=== PATIENT | male | born 1975 | race Caucasian/White ===

== ENCOUNTER 2022-08-04 17:00 | Observation (INO) | payer BC, SELFPAY ==
[2022-08-04] VITALS (8 sets, daily range): BP systolic 137–196; BP diastolic 82–113; PULSE 89–115; RESP 16–26; TEMP 36.4–36.7; O2SAT 95–99; BMI 30.8; BMI 29.9
--- NOTE | 2022-08-04 16:49 | ECG_ITS ---
APPROVED REPORT Exam: Resting ECG HR:116 bpm ECG Measurements Heart Rate 116 AXES SC 169 P 56 QRSd 87 QRS 1 QT 326 T 64 QTc 395 Conclusion SINUS TACHYCARDIA MINIMAL ST DEPRESSION [0.025+ mV ST DEPRESSION] ABNORMAL RHYTHM ECG UNCONFIRMED REPORT Electronically signed by : Ignacio Harmon MD 08/07/2022 15:29:10
--- NOTE | 2022-08-04 17:07 | XR_ITS ---
PROCEDURE INFORMATION: Exam: XR Chest Exam date and time: 08/04/22 05:24 PM Age: 46 years old Clinical indication: Pain; Chest pressure; Additional info: Chest tightness TECHNIQUE: Imaging protocol: Radiologic exam of the chest. Views: 1 view. COMPARISON: No relevant prior studies available. FINDINGS: Lungs: Unremarkable. No consolidation. Pleural spaces: Unremarkable. No pleural effusion. No pneumothorax. Heart/Mediastinum: Unremarkable. No cardiomegaly. Bones/joints: Unremarkable. IMPRESSION: No acute findings.
[2022-08-04 17:21] LABS: Basophils # 0.2 K/mm3 (0-0.2); Basophils % 1.4 % (0.1-2.0); Eosinophils % 0.4 % (0.1-12.0); Hematocrit 47.6 % (42.0-52.0); Hemoglobin 16.1 g/dL (14.1-18.0); Lymphocytes # 4.3 K/mm3 (0.7-4.5); Lymphocytes % 40.3 % (10-50); Mean Corpuscular HGB Conc 33.9 g/dL (31.8-35.4); Mean Corpuscular Hemoglobin 28.8 pg (27.0-31.2); Mean Corpuscular Volume 84.9 fl (80-94); Mean Platelet Volume 8.1 fl (7.4-10.4); Monocytes # 0.4 K/mm3 (0.1-1.0); Monocytes % 3.6 % (1.7-9.3); Neutrophils # 5.7 K/mm3 (1.8-7.8); Neutrophils % 54.3 % (37.0-80.0); Platelet Count 470 K/mm3 (142-424); Red Cell Distribution Width 13.2 % (11.5-17.5); White Blood Count 10.5 K/mm3 (4.8-10.8)
[2022-08-04 17:27] LABS: Blood Urea Nitrogen 9 mg/dl (9-20); Calcium 9.1 mg/dl (8.4-10.2); Carbon Dioxide 24 mmol/L (22.0-30.0); Chloride 101 mmol/L (98-107); Creatinine Clearance Estimated 255 mL/min (50-200); Estimated Glomerular Filt Rate 179 ml/min (>60); GFR (African American) 217 ML/MIN (>60); Glucose 353 mg/dl (74-100); Potassium 3.7 mmoL/L (3.5-5.1)
[2022-08-04 17:34] LABS: Anion Gap 14.7 mEq/L (5-15); Sodium 136 mmol/L (136-145)
--- NOTE | 2022-08-04 17:41 | PC.NURSE ---
report given to tahirarn
[2022-08-04 17:42] LABS: Troponin I < 0.01 ng/ml (0.00-0.034)
--- NOTE | 2022-08-04 17:48 | HMH.EDGENADL ---
Discharge Plan Disposition Patient Disposition: Admitted as Observation Condition: Fair Prescriptions Prescriptions: No Action metformin 500 mg Tablet 500 mg PO DAILY Referrals Follow up/Referrals: John Coffey [Primary Care Provider] - See instructions Clinical Impressions Clinical Impression: New-onset angina, Hypertensive urgency Discharge ED Provider: Leonard Tubbs General Adult HPI General Chief complaint: Chest Pain Stated complaint: CHEST PAIN Time Seen by Provider: 08/04/22 17:50 Mode of Arrival: Ambulatory Source of Information: Patient Limitations: No Limitations Description of Symptoms (Recalled from ER Triage Doc. by RN): Pt reports got all over his body suddenly and began having chest tightness. Pt reports he got so hot he felt like he couldn't breathe and was going to pass out. Pt reports chest tightness was in the center of his chest, pt reports tightness has improved. Pt denies SOA. Pt diamond eyes are red all around the sclera, pt reports he can feel that diamond eyes are hot. NO drainage noted, pt denies blurry vision or double vision or change in vision. Pt reports redness to diamond eyes began at the same time as him feeling hot all over his body. History of Present Illness HPI narrative: Patient states that about 4:30 PM he was talking to his son about going into the garage to work on a mower when he suddenly began having chest tightness and neck tightness, he felt very hot and short of breath. He did not break out in a sweat. He got up to go to the bathroom to get a wet washcloth and when he did so he felt like he was going to pass out. He did not lose consciousness. He did not have nausea or vomiting. His symptoms lasted about 15 minutes and he says he no longer has any chest discomfort. He does not have any known heart disease. He does have diabetes and hyperlipidemia. He does not have hypertension and says when he goes to the doctor his blood pressure is always normal. He has never been a smoker. His grandfather at 35 of a presumed heart attack. His father's had bypass surgery. No recent surgery, travel, hospitalizations. No prior cardiac work-up. Related Data Home Medications Medication Instructions Recorded Confirmed metformin 500 mg tablet 500 mg PO DAILY Diabetes 08/04/22 08/04/22 Allergies Allergy/AdvReac Type Severity Reaction Status Date / Time No Known Allergies Allergy Verified 08/04/22 17:07 [facility] Medical History (Updated 08/04/22 @ 18:21 by Leonard Tubbs MD) Diabetes Hyperlipidemia Social History Smoking Status: Never smoker ROS Obtained: Yes Systems reviewed as appropriate & no additional complaints except as documented Constitutional Constitutional: Denies fever(s) Cardiovascular Cardiovascular: Reports chest pain, Denies diaphoresis (felt hot all over) and Reports radiating jaw, neck or arm pain Respiratory Respiratory: Reports shortness of breath Gastrointestinal Gastrointestingal: Denies abdominal pain, diarrhea or vomiting Physical Exam General General appearance: alert and anxious Head Head exam: atraumatic and normocephalic Eye Eye exam: Present EOMI and conjunctival injection ENT ENT exam: Present normal exam and mucous membranes moist Neck Neck exam: Present normal inspection and trachea midline Chest Chest inspection: Present normal inspection and symmetric chest wall rise Respiratory Respiratory exam: Present normal lung sounds bilaterally; Absent respiratory distress Cardiovascular Cardiovascular exam: Present tachycardia and normal heart sounds Abdominal Exam Abdominal exam: Present soft; Absent distention or tenderness Extremities Exam Extremities exam: Present normal inspection; Absent edema or calf tenderness Neurological Exam Neurological exam: Present alert and oriented X3 Psychiatric Psychiatric exam: Present anxious Skin Skin exam: Present warm and dry; Absent diaphoresis Medical Decision Making
--- NOTE | 2022-08-04 18:00 | PC.NURSE ---
DR. VIRGEN SPEAKING WITH DR. RAMEY REGARDING PATIENT.
--- NOTE | 2022-08-04 18:29 | PC.NURSE ---
DR. CEVALLOS SPEAKING WITH DR. QUEEN REGARDING ADMISSION.
[2022-08-04 18:57] LABS: Coronavirus 19, PCR Not Detected (NotDetected); Influenza A, PCR Not Detected (NotDetected); Influenza B, PCR Not Detected (NotDetected)
--- NOTE | 2022-08-04 20:52 | PC.NURSE ---
Spoke with patient regarding their admission. Patient was uncertain as to rather he wanted to stay as an inpatient with a cardiology consult. Per his , she spoke with her sisters, who are both registered nurses, and was advised by her sisters that [facility] is not a cardiac hospital so her should not stay here for cardiology consults and should instead follow up with his pcp and a scleroscope tester at a larger hospital where they can do interventions. I spoke with the patient and his both and informed them that we are accredited and our scleroscope tester is able to diagnose heart blockages and do interventions here, that if he were to stay as an inpatient he would see cardiology in the morning and they would be able to answer any questions regarding their services that they can and also cannot provide at this facility.
[2022-08-04 21:34] LABS: Troponin I 0.02 ng/ml (0.00-0.034)
--- NOTE | 2022-08-04 21:36 | PC.NURSE ---
PT ARRIVED TO FLOOR VIA WHEELCHAIR AT THIS TIME
[2022-08-04 22:31] LABS: POC Glucose,Bedside 350 (70-110)
[2022-08-05] VITALS: PULSE 80
[2022-08-05 00:01] LABS: Troponin I < 0.01 ng/ml (0.00-0.034)
[2022-08-05 00:30] LABS: POC Glucose,Bedside 308 (70-110)
[2022-08-05 01:29] VITALS: PULSE 90
[2022-08-05 03:51] VITALS: BP 107/63; PULSE 77; RESP 18; TEMP 36.8; O2SAT 97
--- NOTE | 2022-08-05 04:26 | PC.NURSE ---
Pt is alert and oriented x4. Pt has not complained of any pain this shift, pt has been resting since arriving to the floor. is at bedside. Lung sounds clear, abdomen soft and nontender, bowel sounds active. Pt is ACHS FS, glucose on arrival to floor was 350, pt treated per protocol on jan. Call light in reach and working.
[2022-08-05 04:41] VITALS: PULSE 70
[2022-08-05 06:13] LABS: POC Glucose,Bedside 265 (70-110)
--- NOTE | 2022-08-05 07:37 | EXP.PHA.VTE ---
[facility] VTE Monitoring Patient Demographics Admission date: 08/04/22 Report Date: 08/05/22 Time: 07:39 Patient Allergies No Known Allergies Allergy (Verified 08/04/22 21:51) Height: 1.78 m Weight: 95.073 kg Current Active Problems (Updated 08/04/22 @ 18:21 by Leonard Tubbs MD) New-onset angina (Acute) Hypertensive urgency (Acute) VTE Risk Labs: VTE Related Lab Results Hgb 16.1 g/dL (14.1-18.0) 08/04/22 17:01 Hct 47.6 % (42.0-52.0) 08/04/22 17:01 Plt Count 470 K/mm3 (142-424) H 08/04/22 17:01 BUN 9 mg/dl (9-20) 08/04/22 17:01 Creatinine 0.50 mg/dl (0.66-1.25) L 08/04/22 17:01 Estimated Creat Clear 255 mL/min (50-200) 08/04/22 17:01 VTE Score: 2 VTE Risk Level: Very Low Risk Prophylaxis VTE Prophylaxis Ordered?: Yes Types of VTE Prophylaxis: TEDS Knee High Location of Applied Device: Bilateral Lower Extremeties
--- NOTE | 2022-08-05 07:41 | HMH.PHAINT1 ---
Pharmacy Intervention Comments: MEDICATION RECONCILIATION COMPLETED ON PATIENT USING EXTERNAL FILL HISTORY FROM PHARMACY. -MANN PANCHAL, SAVANAHD
--- NOTE | 2022-08-05 07:53 | CA_ITS ---
APPROVED REPORT EXAM: Comprehensive 2D, Doppler, and color-flow Echocardiogram [employer]: Giselle Ponce RT(R) Ht: 5 ft 10 in Wt: 209lbs BSA: 2.13 BP: 166/110 mmHg Indications: DM,CP,HTN 2D Dimensions LVOT 2.04 cm (M/F) 1.5-2.5 LVEF (Blanco's) 57.50 % M: 52 - 72 LV Volume 119.90 mL M: 62 - 150 LV Volume Index 56.55 mL/m2 M: 34 - 74 LA Volume 43.20 mL LA Volume Index 20.37 mL/m2 (M/F) 16-34 M-Mode Dimensions RVDd 3.15 cm (0.9-2.6) LA Diam 4.12 cm (1.9-4.0) LVDd 5.06 cm (3.5-5.7) Ao Diam 3.16 cm (2.0-3.7) LVDs 3.76 cm (3.5-5.7) IVSd 0.84 cm (0.6-1.1) PWd 1.03 cm (0.6-1.1) EF (Teich) 50.30% FS 25.70% EDV (Teich) 121.60 mL ESV (Teich) 60.40 mL LV Diastology E Decel Time 213.00 (160-240 msec) E/A Ratio 0.83 MED E' 6.50 (< 7 cm/sec) E'/MED E' Ratio 10.49 (>14) LAT E' 7.30 (<10 cm/sec) E/LAT E' Ratio 9.34 (>14) Mitral Valve MV A Velocity 82.00 (40-130 cm/s) E/A Ratio 0.83 MV Decel. Time 213.00 (160-240 ms) Left Ventricle Left atrium is mildly enlarged, left ventricle is normal size mild concentric left ventricular hypertrophy, estimated ejection fraction 55% with no regional wall motion abnormality, grade 1 diastolic dysfunction seen without tissue Doppler evidence of raise left atrial pressure. Right Ventricle Right atrium and right ventricle are mildly enlarged with normal contractility. Aortic Valve Aortic valve is minimally thickened and fibrosed there is no aortic stenosis or aortic insufficiency. Mitral Valve Mitral valve is grossly normal, there is trace mitral regurgitation. Tricuspid Valve Tricuspid valve grossly normal, there is trace tricuspid regurgitation, tricuspid regurgitation jet velocity is inadequate for calculation of the right ventricular systolic pressure. Pulmonic Valve Pulmonic valve is poorly visualized. Great Vessels Aortic root is normal size. Inferior vena cava is normal size with normal inspiratory collapse. Pericardium No significant pericardial effusion noted. Conclusion 1. Mild biatrial enlargement, normal left ventricular size, mild concentric left ventricular hypertrophy, estimated ejection fraction 55% with no regional wall motion abnormality, grade 1 diastolic dysfunction seen without tissue Doppler evidence of raise left atrial pressure. 2. Mildly enlarged right ventricle with normal contractility. 3. Trace mitral and tricuspid regurgitation. 4. No significant pericardial effusion noted. 5. Inferior vena cava is normal size with normal inspiratory collapse. Electronically signed by : John Tejada MD 08/05/2022 14:32:00
[2022-08-05 08:00] VITALS: BP 146/74; PULSE 77; PULSE 90; RESP 16; TEMP 36.4; O2SAT 96
--- NOTE | 2022-08-05 08:20 | EXP.CARD.CON ---
History of Present Illness History of Present Illness Consult date: 08/05/22 Requesting physician: Renny Zafar Consult reason: chest pain Chief complaint: Chest pain Additional Medical History:: 1. Diabetes mellitus, treated for about 2 years 2. Family history of coronary artery disease/[place]/bypass in his father in his mid 60s (smoker) 3. Hypertension 4. Hyperlipidemia History of present illness: 46-year-old white male presented for evaluation of sudden onset of warm/hot feeling with associated chest discomfort described as a tightness across the chest and into the neck with some tingling sensation in the arms and legs. Patient came to the emergency department for evaluation. Initial troponin is normal. EKG shows sinus tachycardia at 116 bpm. Symptoms have resolved at this morning. Non-smoker No previous treatment for hypertension PFSH PFS Medical History (Updated 08/05/22 @ 08:25 by ANITA Carbajal) Diabetes Hyperlipidemia Family History (Updated 08/04/22 @ 22:07 by Nadine Galeas, CHANG) Family history of cancer Family history of hypertension Family history of hyperlipidemia Social History (Updated 08/04/22 @ 22:09 by Nadine Galeas RN) Smoking Status: Never smoker alcohol intake: never current occupational status: employed Travel in the last 8 weeks: None Review of Systems *Cardiovascular Cardiovascular: Reports chest pain and Denies dyspnea *Respiratory Respiratory: Denies dyspnea Exam Data for Last 24 hours Vital signs and Labs for Last 24 Hours: Temp Pulse Resp BP Pulse Ox 98.2 F 70 18 107/63 L 97 08/05/22 03:51 08/05/22 04:41 08/05/22 03:51 08/05/22 03:51 08/05/22 03:51 Laboratory Results - last 24 hr 08/04/22 17:01: WBC 10.5, RBC 5.60, Hgb 16.1, Hct 47.6, MCV 84.9, MCH 28.8, MCHC 33.9, RDW 13.2, Plt Count 470 H, MPV 8.1, Neut % (Auto) 54.3, Lymph % (Auto) 40.3, [place] % (Auto) 3.6, Eos % (Auto) 0.4, Baso % (Auto) 1.4, Neut # (Auto) 5.7, Lymph # (Auto) 4.3, [place] # (Auto) 0.4, Eos # (Auto) 0.0, Baso # (Auto) 0.2 08/04/22 17:01: Sodium 136, Potassium 3.7, Chloride 101, Carbon Dioxide 24, Anion Gap 14.7, BUN 9, Creatinine 0.50 L, Estimated Creat Clear 255, Estimated GFR 179, Est GFR ( Amer) 217, Glucose 353 H, Calcium 9.1, Troponin I < 0.01 08/04/22 18:43: SARS-CoV-2 (PCR) Not detected, Influenza A Untype (PCR) Not detected, Influenza Type B (PCR) Not detected 08/04/22 20:31: Troponin I 0.02 08/04/22 22:07: POC Glucose 350 H* 08/04/22 23:25: Troponin I < 0.01 08/05/22 00:22: POC Glucose 308 H* 08/05/22 06:05: POC Glucose 265 H I & O for Last 24 hours: Intake & Output 08/02/22 08/03/22 08/04/22 08/05/22 11:59 11:59 11:59 11:59 Output Total 0 / 0 Balance 0 / 0 Weight 209 lb 9.6 oz *Routine Neck Exam Neck: Absent JVD or carotid bruit *Routine Respiratory Exam Respiratory: Present CTA bilaterally *Routine Cardiovascular Exam Cardiovascular: Present RRR, Normal S1 and Normal S2; Absent murmur, gallop or rubs *Routine Extremities Exam Extremities: Absent edema *Routine Neurological Exam Neurological: Present alert, oriented X3 and CN II-XII intact Meds Home Medications and Allergies Home Medications Medication Instructions Recorded Confirmed Type atorvastatin 10 mg tablet 10 mg PO HS Cholesterol 08/04/22 08/04/22 History metformin 500 mg tablet 1,000 mg PO BID Diabetes 08/04/22 08/05/22 History New Prescriptions to Start Prescriptions: Allergies Allergy/AdvReac Type Severity Reaction Status Date / Time No Known Allergies Allergy Verified 08/04/22 21:51 Assessment and Plan *Assessment and plan (1) New-onset angina: Status: Acute Category: Medical Code(s): I20.9 - Angina pectoris, unspecified (2) Hypertensive urgency: Status: Acute Category: Medical Code(s): I16.0 - Hypertensive urgency (3) Hyperlipidemia: Status: Acute Category: Medical Code(s): E78.5 - Hyper
[2022-08-05 09:31] LABS: Chol/HDL Ratio 5.4 (1-3.5); Cholesterol 243 mg/dl (140-200); HDL Cholesterol 45 mg/dl (40-60); Triglycerides 203 mg/dl (30-150); VLDL Cholesterol 41 mg/dL (0-40)
[2022-08-05 09:49] LABS: Hemoglobin A1C 11.6 % (4.0-6.0)
[2022-08-05 10:33] VITALS: BMI 29.9
[2022-08-05 11:41] LABS: POC Glucose,Bedside 253 (70-110)
[2022-08-05 12:00] VITALS: BP 121/74; PULSE 76; RESP 18; TEMP 36.6; O2SAT 97
[2022-08-05 14:11] LABS: Direct LDL Cholesterol 145.33 mg/dL (100-129)
--- NOTE | 2022-08-05 14:25 | PC.NURSE ---
rounded on patient. patient is eager for discharge. awaiting on echo results. called william crowe who stated he had gotten the results back and from their standpoint he could go home. he stated he had told primary this as well, along with medication recommendations. this was then relayed to patient. no further questions or concerns. no needs voiced. went over new medications with patient. encouraged him to ring out as needed
--- NOTE | 2022-08-05 14:52 | EXP.HPDC ---
General Admission date:: 08/04/22 Discharge date: 08/05/22 *Admission Date: 08/04/22 *Chief complaint: chest pressure *History of present illness: 46-year-old white male presented for evaluation of sudden onset of warm/hot feeling with associated chest discomfort described as a tightness across the chest and into the neck with some tingling sensation in the arms and legs.? Patient came to the emergency department for evaluation.? Initial troponin is normal.? EKG shows sinus tachycardia at 116 bpm. Symptoms have resolved at this morning. Non-smoker No previous treatment for hypertension (above as per [facility]) [facility] Medical History Diabetes Hyperlipidemia Family History Family history of cancer Coronary artery disease Family history of hypertension Family history of hyperlipidemia Social History Smoking Status: Never smoker alcohol intake: never current occupational status: employed Travel in the last 8 weeks: None Review of Systems Constitutional Constitutional: Denies fatigue, Denies fever(s), Denies headache(s) and Denies weakness Eyes Eyes: Denies blurry vision and Denies diplopia ENT Ears, Nose, Mouth, and Throat: Denies headache(s), Denies nasal congestion, Denies sore throat and Denies vertigo *Cardiovascular Cardiovascular: Reports chest pain, Reports dyspnea and Reports radiating jaw, neck or arm pain *Respiratory Respiratory: Denies chest congestion, Denies cough and Reports dyspnea *Gastrointestinal Gastrointestinal: Denies abdominal pain, Denies loose stools, Denies nausea and Denies vomiting *Genitourinary Genitourinary: Denies difficulty urinating and Denies dysuria *Musculoskeletal Musculoskeletal: Denies arthralgias *Neurologic Neurologic: Denies headache(s), Denies vertigo and Denies weakness Endocrine Endocrine: Denies fatigue Exam Data for Last 24 hours Vital signs and Labs for Last 24 Hours: Temp Pulse Resp BP Pulse Ox 97.8 F 76 18 121/74 97 08/05/22 12:00 08/05/22 12:00 08/05/22 12:00 08/05/22 12:00 08/05/22 12:00 Laboratory Results - last 24 hr 08/04/22 17:01: WBC 10.5, RBC 5.60, Hgb 16.1, Hct 47.6, MCV 84.9, MCH 28.8, MCHC 33.9, RDW 13.2, Plt Count 470 H, MPV 8.1, Neut % (Auto) 54.3, Lymph % (Auto) 40.3, [place] % (Auto) 3.6, Eos % (Auto) 0.4, Baso % (Auto) 1.4, Neut # (Auto) 5.7, Lymph # (Auto) 4.3, [place] # (Auto) 0.4, Eos # (Auto) 0.0, Baso # (Auto) 0.2 08/04/22 17:01: Sodium 136, Potassium 3.7, Chloride 101, Carbon Dioxide 24, Anion Gap 14.7, BUN 9, Creatinine 0.50 L, Estimated Creat Clear 255, Estimated GFR 179, Est GFR ( Amer) 217, Glucose 353 H, Calcium 9.1, Troponin I < 0.01 08/04/22 17:01: Hemoglobin A1c 11.6 H 08/04/22 18:43: SARS-CoV-2 (PCR) Not detected, Influenza A Untype (PCR) Not detected, Influenza Type B (PCR) Not detected 08/04/22 20:31: Troponin I 0.02 08/04/22 22:07: POC Glucose 350 H* 08/04/22 23:25: Troponin I < 0.01 08/04/22 23:25: Triglycerides 203 H, Cholesterol 243 H, LDL Cholesterol Direct 145.33 H, VLDL Cholesterol 41 H, HDL Cholesterol 45, Cholesterol/HDL Ratio 5.4 H 08/05/22 00:22: POC Glucose 308 H* 08/05/22 06:05: POC Glucose 265 H 08/05/22 11:32: POC Glucose 253 H I & O for Last 24 hours: Intake & Output 08/03/22 08/04/22 08/05/22 08/06/22 11:59 11:59 11:59 11:59 Output Total 0 / 0 Balance 0 / 0 Weight 209 lb 7.026 oz Constitutional Constitutional: no acute distress *Routine HEENT Exam Head: Present normocephalic and atraumatic Eye: Present EOMI and PERRL ENT: Present mucous membranes moist *Routine Neck Exam Neck: Present supple and full ROM *Routine Respiratory Exam Respiratory: Present CTA bilaterally *Routine Cardiovascular Exam Cardiovascular: Present RRR *Routine Abdominal Exam Abdominal: Present soft and normoactive bowel sounds; Abse
--- NOTE | 2022-08-08 13:00 | CARE MANAGER ---
Spoke with patient for post-discharge phone interview. Patient states that he is doing well and has no issues at this time.
== END 2022-08-05 15:22 | disposition home or self-care (01) ==
LOC: ER 18:21 → 2ND 18:37
PROVIDERS: Physician Assistant; Admitting Provider Family Medicine; Emergency Provider Emergency Medicine; PCP Family Medicine; Visit Provider Family Medicine
DX: I20.9 Angina pectoris, unspecified (principal); I16.0 Hypertensive urgency; E78.5 Hyperlipidemia, unspecified; E11.9 Type 2 diabetes mellitus without complications; Z79.84 Long term (current) use of oral hypoglycemic drugs; Z82.49 Family history of ischemic heart disease and other diseases of the circulatory system; R07.9 Chest pain, unspecified
CPT/HCPCS: 36415; 71045; 80048; 80061; 82962; 83036; 84484; 85025; 93005; 93306; 93308; 99285; C9803; G0378; U0003; U0005

== ENCOUNTER → 2022-08-15 06:47 | Outpatient (CLI) | payer OTHER, SELFPAY ==
--- NOTE | 2022-08-15 06:48 | CA_ITS ---
APPROVED REPORT Exam: Exercise Treadmill Technologist: Maria Victoria Jovel, Ht: 5 ft 10 in Wt: 213 lbs BSA: 2.14 m2 HR: 74 bpm BP: 143/91 mmHg Medical History Medical History: Hyperlipidemia, HTN, Diabetic Medications: Aspirin,,,,, Metformin,,,,, Atorvastatin,,,,, Carvedilol,,,,, Allergies: No known drug allergies Cardiac Risk Factors: HTN, Hyperlipidemia, Diabetes , FHX of CAD Stress Test Details Test: Dharmesh HR Resting HR: 88 bpm Max Heart Rate (APMHR): 174.777385 bpm Max HR Achieved: 162 bpm Target HR (85% APMHR): 147.855147 bpm % of APMHR: 93.10 Recovery HR: 133 bpm BP Resting BP: 147/94 mmHg Max BP: 220/110 mmHg Recovery BP: 220.0/110.0 mmHg ECG Clinical Exercise duration: 09:56 min Highest Stage Achieved: Exercise capacity: 12.8 METs Stress ECG Conclusion PT HAD SOA/FATIGUE, <1.[address] CHANGE Test Summary RECOVERY 03:00 0.0 0.0 108 . 180/ 91 . . REST . . . . . . . Standing REST 20:19 0.0 0.0 88 . 147/ 94 . . Stage 1 01:00 10.0 1.7 101 . . . . Stage 1 02:00 10.0 1.7 106 . . . . Stage 1 03:00 10.0 1.7 109 . 190/108 . . Stage 2 01:00 12.0 2.5 118 . . . . Stage 2 02:00 12.0 2.5 120 . . . . Stage 2 03:00 12.0 2.5 120 . 198/120 . . Stage 3 01:00 14.0 3.4 133 . . . . Stage 3 02:00 14.0 3.4 136 . . . . Stage 3 03:00 14.0 3.4 146 . 198/118 . . Stage 4 00:56 16.0 4.2 161 . . . Stop exercise at 09:56 RECOVERY 01:00 0.0 0.0 133 . . . . RECOVERY 02:00 0.0 0.0 114 . 220/110 . . RECOVERY 03:00 0.0 0.0 108 . 180/ 91 . . RECOVERY 03:43 0.0 0.0 101 . 164/ 86 . . Electronically signed by : John Tejada MD 08/15/2022 16:21:45
--- NOTE | 2022-08-15 06:48 | NM_ITS ---
APPROVED REPORT Exam: Nuclear Stress Test Indication: Chest pain, SOB, HTN, DM, High cholesterol, Family history Patient Location: Outpatient Stress Tech: Maria Victoria Malone HI Tech:Trini Landa, ARRT, RT (R)(N) Ht: 5 ft 10 in Wt: 210 lbs HR: 88 bpm BP: 147/94 mmHg BSA: 2.13 m2 TID: 0.91 BMI: 30.1 History: Chest pain, SOB, HTN, DM, High cholesterol, Family history Procedure: Patient exercised on Dharmesh protocol 9:56 minutes and sec, resting heart rate 88 bpm, resting blood pressure 147/94 mmHg, with exercise maximum heart rate achived was 162 bpm which is 93 % of the maximum predicted heart rate and blood pressure was 220/110 mmHg. Test was stopped due to SOB. Patient denied any complaint of chest pain. Patient has Good exercise capacity, achieved 12.8 METs of workload on treadmill, the blood pressure response to exercise was Hypertensive. Electrocardiogram Resting electrocardiogram showed sinus rhythm, with exercise there is less than 1.[address] segment depression noted from the baseline EKG. The EKG portion of the exercise Myoview is negative for ischemia. Cardiac Stress and Resting SPECT Images: Cardiac Stress and Resting SPECT images were obtained using technetium 99m Myoview 28.8 mCi stress and 10.43 mCi at rest. Gated SPECT analysis of segmental wall motion and calculation of the ejection fraction also done. Prone images were also obtained. Cardiac stress and rest SPECT images show uniform myocardial activity without segmental perfusion abnormality, computer derived ejection fraction is 58% with no regional wall motion abnormality, right ventricle is normal size and contractility. Conclusion: 1. The EKG portion of the exercise Myoview is negative for ischemia, patient has good exercise capacity achieved 12.8 METs of workload on treadmill, the blood pressure response to exercise was hypertensive, there was no exercise-induced chest discomfort. 2. No scintigraphic evidence of reversible ischemia seen, computer derived ejection fraction 58% with no regional wall motion abnormality, right ventricle is normal size and contractility. 3. Normal exercise Myoview study. Electronically signed by : John Tejada MD 08/15/2022 16:37:27
--- NOTE | 2022-08-15 09:31 | HMH.ITSHM ---
Current Home Medications as stated by this patient Leonard George or home office representative. []METFORMIN LOSARTAN CARVEDILOL ATORVASTATIN ASA
== END ==
PROVIDERS: PCP Family Medicine; Visit Provider Physician Assistant
DX: R07.9 Chest pain, unspecified (principal)
CPT/HCPCS: 78452; 93017; A9502

== ENCOUNTER 2023-04-14 16:22 | Emergency (ER) | payer OTHER, SELFPAY ==
[2023-04-14 16:24] VITALS: BP 135/68; PULSE 93; RESP 16; TEMP 36.5; O2SAT 90; BMI 32.5
[2023-04-14 16:28] VITALS: BP 135/68; PULSE 90; RESP 16; O2SAT 96
--- NOTE | 2023-04-14 16:30 | ECG_ITS ---
APPROVED REPORT Exam: Resting ECG HR:90 bpm ECG Measurements Heart Rate 90 AXES ND 132 P 32 QRSd 101 QRS -3 QT 366 T 33 QTc 414 Conclusion SINUS RHYTHM NORMAL ECG UNCONFIRMED REPORT Electronically signed by : Ignacio Harmon MD 04/15/2023 07:44:31
[2023-04-14 16:31] VITALS: BP 125/75; PULSE 90; RESP 16; O2SAT 96
--- NOTE | 2023-04-14 16:31 | HMH.EDGENADL ---
Discharge Plan Disposition Patient Disposition: Home, Self-Care Prescriptions Prescriptions: No Action carvedilol [Coreg] 6.25 mg tablet 6.25 mg PO BID Rx Instructions: must administer with a meal/food losartan 50 mg tablet 50 mg PO DAILY Qty: 90 3RF metformin 500 mg Tablet 1,000 mg PO BID atorvastatin 10 mg Tablet 10 mg PO HS aspirin 81 mg capsule 81 mg PO DAILY Qty: 30 0RF Referrals Follow up/Referrals: John Coffey [Primary Care Provider] - See instructions Activity Restrictions/Add. Instructions Additional Instructions/Restrictions: Your evaluation today for near syncope and hypoxemia was unremarkable. Your hypoxemia spontaneously resolved. Your symptoms are most likely secondary to neurocardiogenic syncope or vasovagal syncope. Please follow-up with primary care doctor to wear a Holter monitor. Incidentally you were also found to have a 3 mm pulmonary nodule you are very low risk and you may choose in conjunction with your primary care doctor to not follow this up or to have a CT scan and follow-up in 12 months. Please return to the emergency department with any worsening symptoms or other concerns. Clinical Impressions Clinical Impression: Near syncope, Incidental pulmonary nodule, Hypoxia Discharge ED Provider: Christi Leung General Adult HPI General Chief complaint: Dizziness Stated complaint: Dizzy,blurred vision Time Seen by Provider: 04/14/23 16:32 History of Present Illness HPI narrative: Patient is a 47-year-old male presenting with near syncope. States that he was in his normal state of health without any preceding symptoms and was at a greenhouse today for short period of time and started to feel lightheaded getting tunnel vision feeling like he was going to pass out went and sat in his truck but air conditioning on himself and started to feel little bit better. His friend who is with him stated that he looked like he was going to pass out but we do not believe that he lost full consciousness. Patient denies any shortness of breath any drug or chemical exposures, any chest pain or shortness of breath currently denies any current symptoms. Has not had any nausea or vomiting. Related Data Home Medications Medication Instructions Recorded Confirmed atorvastatin 10 mg tablet 10 mg PO HS Cholesterol 08/04/22 08/22/22 metformin 500 mg tablet 1,000 mg PO BID Diabetes 08/04/22 08/22/22 carvedilol 6.25 mg tablet (Coreg) 6.25 mg PO BID 08/08/22 08/22/22 Previous Rx's Medication Instructions Recorded aspirin 81 mg capsule 81 mg PO DAILY #30 caps 08/05/22 losartan 50 mg tablet 50 mg PO DAILY #90 tabs 08/08/22 Allergies Allergy/AdvReac Type Severity Reaction Status Date / Time No Known Allergies Allergy Verified 08/22/22 14:01 [facility] Disclaimer: The information contained in this section may have been updated after the patient was seen, as this information can be updated by other users. Medical History Diabetes HTN (hypertension) Hyperlipidemia Family History Other Coronary artery disease Family history of cancer Family history of hyperlipidemia Family history of hypertension Social History Smoking Status: Never smoker alcohol intake: never current occupational status: employed Travel in the last 8 weeks: None ROS Obtained: Yes All systems reviewed & no additional complaints except as documented Physical Exam General General appearance: alert Respiratory Respiratory exam: Present normal lung sounds bilaterally and other (Patient with oxygen saturations 88 to 89% on room air with a good waveform and consistent no respiratory distress, minimal improvement with oxygen supplementation at 2 L and 4 L, 4 L oxygen saturations improved to low 90s); Absent respiratory distress, w
[2023-04-14 16:35] LABS: POC Glucose,Bedside 162 (70-110)
--- NOTE | 2023-04-14 16:45 | CT_ITS ---
PROCEDURE INFORMATION: Exam: CTA Chest With Contrast Exam date and time: 04/14/2023 5:33 PM Age: 47 years old Clinical indication: Patient HX: Low o2, vertigo, PT states he felt overheated; Additional info: Syncope, hypoxemia TECHNIQUE: Imaging protocol: Computed tomographic angiography of the chest with contrast. 3D rendering (Not supervised by radiologist): MIP and/or 3D reconstructed images were created by the technologist. Radiation optimization: All CT scans at this facility use at least one of these dose optimization techniques: automated exposure control; mA and/or kV adjustment per patient size (includes targeted exams where dose is matched to clinical indication); or iterative reconstruction. Contrast material: ISOVUE 370; Contrast volume: 100 ml; Contrast route: INTRAVENOUS (IV); REPORTING DATA: Count of CT and Cardiac NM exams in prior 12 months: This patient has received 0 known CTs and 0 known cardiac nuclear medicine studies in the 12 months prior to the current study. COMPARISON: CR XR CHEST PORTABLE 08/04/2022 5:24 PM FINDINGS: Pulmonary arteries: Normal. No pulmonary emboli. Aorta: Regions of atherosclerotic vascular calcification involving the aortic arch.. Lungs: Densely calcified granuloma anteriorly left upper lobe. Pleural spaces: Unremarkable. No pneumothorax. No pleural effusion. Heart: Unremarkable. No cardiomegaly. No pericardial effusion. Coronary arteries: Trace coronary artery calcification. Lymph nodes: Nonspecific mediastinal lymph nodes. Calcified hilar lymph nodes. Liver: Hepatic steatosis. Spleen: Evidence of prior splenic granulomatous disease. Splenomegaly. 3 mm juxtapleural nodule anteriorly right middle lobe. Bones/joints: Unremarkable. No acute fracture. Soft tissues: Unremarkable. Other findings: Evidence of prior granulomatous disease. IMPRESSION: 1. Evidence of prior granulomatous disease. 2. No evidence of acute abnormality. 3. 3 mm juxtapleural nodule right middle lobe. For patients at low risk (minimal or absent history of smoking and of other known risk factors), no routine follow-up is indicated. For patients at high risk (history of smoking or of other known risk factors), consider optional CT Chest at 12 months. (Reference: Martha) 4. Splenomegaly REFERENCES: Martha Ma et al. Guidelines for Management of Incidental Pulmonary Nodules Detected on CT Images: From the Fleischner Society 2017. Radiology. 2017;284(1):228-243.
[2023-04-14 16:52] LABS: Basophils # 0.1 K/mm3 (0-0.2); Basophils % 0.5 % (0.1-2.0); Eosinophils % 0.2 % (0.1-12.0); Hematocrit 45.1 % (42.0-52.0); Hemoglobin 15.2 g/dL (14.1-18.0); Lymphocytes # 6.3 K/mm3 (0.7-4.5); Lymphocytes % 46.8 % (10-50); Mean Corpuscular HGB Conc 33.8 g/dL (31.8-35.4); Mean Corpuscular Hemoglobin 28.6 pg (27.0-31.2); Mean Corpuscular Volume 84.7 fl (80-94); Monocytes # 0.4 K/mm3 (0.1-1.0); Monocytes % 2.9 % (1.7-9.3); Neutrophils # 6.7 K/mm3 (1.8-7.8); Neutrophils % 49.5 % (37.0-80.0); Platelet Count 483 K/mm3 (142-424); Red Blood Count 5.32 M/mm3 (4.60-6.20); Red Cell Distribution Width 13.4 % (11.5-17.5); White Blood Count 13.5 K/mm3 (4.8-10.8)
[2023-04-14 16:53] LABS: Chloride 99 mmol/L (98-107); Potassium 3.8 mmoL/L (3.5-5.1); Sodium 138 mmol/L (136-145)
[2023-04-14 16:56] LABS: Alanine Aminotransferase 57 U/L (12-78); Albumin Level 4.4 g/dl (3.5-5.0); Albumin/Globulin Ratio 1.3 (1.1-1.8); Alkaline Phosphatase 83 U/L (38-126); Anion Gap 18.8 mEq/L (5-15); Aspartate Amino Transferase 38 U/L (17-59); Bilirubin,Total 0.9 mg/dl (0.2-1.3); Blood Urea Nitrogen 17 mg/dl (9-20); Calcium 9.6 mg/dl (8.4-10.2); Carbon Dioxide 24 mmol/L (22.0-30.0); Creatinine Clearance Estimated 184 mL/min (50-200); Estimated Glomerular Filt Rate 121 ml/min (>60); GFR (African American) 146 ML/MIN (>60); Globulin 3.3 g/dL (1.3-3.2); Glucose 176 mg/dl (74-100); Total Protein,Serum 7.7 g/dl (6.3-8.2)
--- NOTE | 2023-04-14 16:57 | PC.NURSE ---
Respiratory @ BS for [facility]
[2023-04-14 16:59] LABS: ABG Base Excess -0.5 mmol/L (-2.4-2.3); ABG HCO3 24.2 mmhg (22.0-26.0); ABG Methemoglobin 0.2 % (0.4-1.5); ABG Oxygen Saturation 96 % (90-100); ABG PCO2 39.3 mmhg (35.0-45.0); ABG PH 7.41 mmol/L (7.35-7.45); ABG PO2 79.1 mmhg (80-100); ABG TCO2 25.4 mmhg (23-27); Allen's Test Acceptable; Carboxyhemoglobin 0.7 (0.0-5.0); Oxygen 4 LPM %; Source Right Radial
[2023-04-14 17:00] VITALS: BP 128/87; PULSE 89; RESP 17; O2SAT 99
[2023-04-14 17:14] LABS: Troponin I < 0.01 ng/ml (0.00-0.034)
[2023-04-14 18:00] VITALS: BP 144/98; PULSE 91; RESP 16; O2SAT 96
--- NOTE | 2023-04-14 18:15 | PC.NURSE ---
RN at bedside with MD for exam.
[2023-04-14 18:41] VITALS: BP 148/97; PULSE 94; RESP 16; TEMP 36.5; O2SAT 96
== END 2023-04-14 18:47 | disposition home or self-care (01) ==
PROVIDERS: Emergency Provider Student in an Organized Health Care Education/Training Program; PCP Family Medicine
DX: R55 Syncope and collapse (principal); R09.02 Hypoxemia; R42 Dizziness and giddiness; H53.8 Other visual disturbances; I10 Essential (primary) hypertension
CPT/HCPCS: 71275; 80053; 82375; 82803; 82962; 83050; 84484; 85025; 93005; 96360; 99285; Q9967